=== PATIENT | male | born 1965 | race Caucasian/White ===

== ENCOUNTER → 2017-09-25 | Outpatient (CLI) | payer OTHER ==
--- NOTE | 2017-09-26 15:08 | RAD ---
EXAM DESCRIPTION: Chest,3 Views CLINICAL HISTORY: 51 years Male, ASTHMA, INTRINSIC COMPARISON: None. TECHNIQUE/FINDINGS: PA and lateral radiographs. Bilateral shallow oblique images with nipple markers. IMPRESSION: Nipple markers on the oblique images indicate that the nodular densities are nipples. No abnormal nodules in the lower lung nelson. Minimal prominence of interstitial markings in the lungs bilaterally. No acute infiltrate. Cardiopulmonary vascular structures and mediastinal silhouette is negative. Electronically signed by: Riki Ontiveros MD 09/26/2017 3:07 PM CDT
== END ==
LOC: RAD 14:38
DX: J45.909 Unspecified asthma, uncomplicated (principal)